=== PATIENT | male | born 1990 | race African-American/Black ===

== ENCOUNTER 2021-01-23 19:50 | Emergency (ER) | payer OTHER ==
[~2021-01-23] VITALS: Ht 167.6 cm; Wt 68.0 kg
[2021-01-23 20:39] LABS: PLATELET COUNT 361 K/uL (142-355)
[2021-01-23 20:52] LABS: POTASSIUM 2.9 mmol/L (3.6-5.2); SODIUM 136 mmol/L (136-145)
[2021-01-23 21:37] LABS: PARTIAL THROMBOPLASTIN TIME 23.5 SECONDS (24.5-33.6)
[2021-01-23 22:26] VITALS: BP 134/88; TEMP 98.7
== END 2021-01-23 22:26 | disposition home or self-care (01) ==
LOC: ED 20:05
PROVIDERS: Hospitalist
DX: E86.0 Dehydration (principal); R25.2 Cramp and spasm; E87.6 Hypokalemia
CPT/HCPCS: 36415; 80053; 80320; 82550; 83735; 83880; 84484; 85027; 85610; 85730; 93005; 96360; 96365; 96375; 99284; J0696; J1885; J2405